=== PATIENT | female | born 1940 ===

== ENCOUNTER 2017-10-04 11:26 | Emergency (ER) | payer OTHER, MEDICARE ==
--- NOTE | 2017-10-04 11:39 | CPEKG ---
Heart Rate: 80 RR Interval: 750 P-R Interval: 192 QRSD Interval: 76 QT Interval: 388 QTC Interval: 448 P [place]: 43 QRS [place]: -38 T Wave [place]: 35 EKG Severity - ABNORMAL ECG - EKG Impression: SINUS RHYTHM EKG Impression: LEFT AXIS DEVIATION EKG Impression: PROBABLE LEFT VENTRICULAR HYPERTROPHY Electronically Signed By: Robert Bess 04-Oct-2017 12:51:06
--- NOTE | 2017-10-04 11:39 | EDPHY ---
H & P Stated Complaint: dizzy,HTN Time Seen by Provider: 10/04/17 11:38 HPI/ROS: CHIEF COMPLAINT: Hypertension, dizziness HISTORY OF PRESENT ILLNESS: The patient is referred to the ED from Neurology for evaluation of hypertension and dizziness. The patient reportedly had a blood pressure of 220/120. She was being evaluated for chronic dizziness. The patient does take hydrochlorothiazide for her hypertension. The patient reports that she has been experiencing symptoms since August. She reports 2 components of dizziness one is a chronic baseline dizziness which appears to be more consistent with presyncope. Additionally the patient has been experiencing bouts of vertigo. The patient denies any headache or neck pain. She denies any chest pain or shortness of breath. She currently is symptom free. The patient did have a history of hypertension noted previously. REVIEW OF SYSTEMS: A comprehensive 10 point review of systems is otherwise negative aside from elements mentioned in the history of present illness. Source: Patient - Medical/Surgical History Hx Asthma: Yes Hx Chronic Respiratory Disease: Yes Hx Diabetes: Yes Hx Cardiac Disease: No Hx Renal Disease: No Hx Cirrhosis: No Hx Alcoholism: No Hx HIV/AIDS: No Hx Splenectomy or Spleen Trauma: No Other PMH: DM,fibromyalgia, hearing loss bilateral, neuroma, raynolds, ADONAY, tendenitis - Social History Smoking Status: Never smoked - Physical Exam Exam: General Appearance: Alert, no distress Eyes: Pupils equal and round no pallor or injection ENT, Mouth: Mucous membranes moist Respiratory: There are no retractions, lungs are clear to auscultation Cardiovascular: Regular rate and rhythm Gastrointestinal: Abdomen is soft and nontender, no masses, bowel sounds normal Neurological: A&O, normal motor function, normal sensory exam, normal cranial nerves Skin: Warm and dry, no rashes Musculoskeletal: Neck is supple nontender Extremities: symmetrical, full range of motion Psychiatric: Patient is oriented X 3, there is no agitation Constitutional: Initial Vital Signs Temperature (C) 36.7 C 10/04/17 11:28 Heart Rate 90 10/04/17 11:28 Respiratory Rate 18 10/04/17 11:28 Blood Pressure 201/124 H 10/04/17 11:28 O2 Sat (%) 94 10/04/17 11:28 O2 Delivery Mode Room Air Allergies/Adverse Reactions: amitriptyline Allergy (Verified 10/04/17 11:47) aspirin Allergy (Verified 10/04/17 11:47) budesonide Allergy (Verified 10/04/17 11:47) codeine Allergy (Verified 10/04/17 11:47) diclofenac [From Voltaren] Allergy (Verified 10/04/17 11:47) duloxetine [From Cymbalta] Allergy (Verified 10/04/17 11:47) esomeprazole [From Nexium] Allergy (Verified 10/04/17 11:47) famotidine [From Pepcid] Allergy (Verified 10/04/17 11:47) furosemide [From Lasix] Allergy (Verified 10/04/17 11:47) gabapentin Allergy (Verified 10/04/17 11:47) hydrocodone Allergy (Verified 10/04/17 11:47) Penicillins Allergy (Verified 10/04/17 11:47) prednisone Allergy (Verified 10/04/17 11:47) pregabalin [From Lyrica] Allergy (Verified 10/04/17 11:47) ranitidine Allergy (Verified 10/04/17 11:47) tramadol Allergy (Verified 10/04/17 11:47) Home Medications: Medication Instructions Recorded Asmanex 10/04/17 Azithromycin 10/04/17 Betamethasone Dp Aug 0.05% Lot 10/04/17 Cromolyn Sodium 10/04/17 Hydrochlorothiazide 10/04/17 Iron 10/04/17 Lisinopril [Zestril 10 mg (*)] 10 mg PO DAILY #30 tab 10/04/17 Proair Hfa 10/04/17 Probenecid 10/04/17 Reclast 10/04/17 Travatan Z 10/04/17 [email or web address] 10/04/17 Medical Decision Making - Diagnostics EKG Interpretation: EKG: Complete interpretation has been separately recorded in the [email or web address] archive. Summary impression: Sinus rhythm, rate 80 Imaging Results: Imaging Impressions Head CT 10/04/17 12:02 Impression: Nothing acute identified. Results called to Dr. James Bess at 12:35 PM General information for patients regarding this examination can be found at [email or web address] If you have questions or comments about this report, please contact me at (hospital) or [phone] (cell). ED Course/Re-evaluation: The patient presents to the ED for evaluation of chronic intermittent dizziness. The patient was noted to be hypertensive upon arrival. Without intervention her blood pressure did decrease to 170/92. Noncontrast head CT scan is within normal limits. The patient will be started on a low dose of lisinopril. I have asked her to follow up with her primary care provider for a blood pressure recheck in the coming weeks. The patient should return to the ED for any markedly worsening chest pain or other concerns. The patient was offered angiographic studies of her head and neck which she has declined secondary to her concerns about receiving contrast. The patient did undergo a negative noncontrast head CT scan. I re-evaluated the patient at 12:45 p.m.. She is in no acute distress and neurologically intact. She will be discharged home with a prescription for lisinopril. She is given customary aftercare instructions and return precautions. Differential Diagnosis: Differential diagnosis considered includes hypertensive emergency, benign positional vertigo, vertebrobasilar insufficiency Departure - Departure Disposition: Home, Routine, Self-Care Clinical Impression: Vertigo, Hypertension Condition: Good Instructions: Vertigo (ED) Additional Instructions: 1. Please begin lisinopril as prescribed for your high blood pressure. 2. Please follow-up with your primary care provider for a blood pressure recheck in the next week. 3. Return to the ED for severe headache, markedly worsening symptoms or other concerns. Referrals: June Beyer MD [Medical Doctor] - As per Instructions
[2017-10-04] MEDS ORDERED: IOPAMIDOL (ISOVUE 370) 100 ML BTL IV ONE (11:56)
[2017-10-04 12:23] VITALS: BP 172/90
== END 2017-10-04 13:10 | disposition home or self-care (01) ==
LOC: EDUNIT#
DX: I10 Essential (primary) hypertension (principal); R53.83 Other fatigue; E11.9 Type 2 diabetes mellitus without complications; J45.909 Unspecified asthma, uncomplicated
CPT/HCPCS: Q9967

== ENCOUNTER → 2017-12-19 | Outpatient (CLI) | payer OTHER, MEDICARE | LOC: BHFA 08:30 | PROVIDERS: ATTEND Internal Medicine | DX: R06.02 Shortness of breath (principal) ==